=== PATIENT | female | born 1975 | race Caucasian/White ===

== ENCOUNTER → 2019-07-30 | Outpatient (REF) | payer OTHER ==
[2019-07-30 13:50] LABS: BASO # 0.1 10^3/uL (0.0-0.2); EOS # 0.2 10^3/uL (0.0-0.5); EOS % 3.2 % (0.0-3.0); HEMATOCRIT 42.8 % (36.0-47.0); HEMOGLOBIN 13.8 g/dl (12.0-15.5); LYMPH # 1.7 10^3/uL (1.5-5.0); LYMPH % 24.4 % (24.0-44.0); MEAN CORPUSCULAR HEMOGLOBIN 29.7 pg (27.0-33.0); MEAN CORPUSCULAR HGB CONC 32.2 g/dl (32.0-36.5); MONO # 0.5 10^3/uL (0.0-0.8); NEUTROPHILS # 4.5 10^3/uL (1.5-8.5); NEUTROPHILS % 64.1 % (36.0-66.0); PLATELET COUNT, AUTOMATED 303 10^3/uL (150-450); RED BLOOD COUNT 4.65 10^6/uL (4.00-5.40)
[2019-07-30 14:04] LABS: ALBUMIN 4.3 GM/DL (3.2-5.2); ALT/SGPT 26 U/L (12-78); BILIRUBIN,TOTAL 0.4 MG/DL (0.2-1.0); BLOOD UREA NITROGEN 16 MG/DL (7-18); CALCIUM LEVEL 9.3 MG/DL (8.5-10.1); CARBON DIOXIDE LEVEL 28 MEQ/L (21-32); CHLORIDE LEVEL 103 MEQ/L (98-107); CHOLESTEROL LEVEL 167 MG/DL (<200); CREATININE FOR GFR 0.84 MG/DL (0.55-1.30); FREE T4 1.31 NG/DL (0.76-1.46); GLOMERULAR FILTRATION RATE > 60.0 (>58); GLUCOSE, FASTING 92 MG/DL (70-100); HDL CHOLESTEROL 46 MG/DL (>40); LDL CHOLESTEROL 100 MG/DL (<100); NON-HDL-C 121 MG/DL; POTASSIUM SERUM 4.5 MEQ/L (3.5-5.1); SODIUM LEVEL 138 MEQ/L (136-145); THYROID STIMULATING HORMONE < 0.005 uIU/ML (0.358-3.740); TOTAL PROTEIN 7.4 GM/DL (6.4-8.2); TRIGLYCERIDES LEVEL 104 MG/DL (<150)
== END ==
LOC: M LABDRAW1 11:56
PROVIDERS: ATTEND Nurse Practitioner Family
DX: E03.9 Hypothyroidism, unspecified (principal); E78.00 Pure hypercholesterolemia, unspecified

== ENCOUNTER → 2019-08-05 | Outpatient (REF) | payer OTHER ==
[2019-08-05 18:42] LABS: COLLAGEN EPINEPHRINE 152 SECONDS (74-162)
[2019-08-05 18:51] LABS: INR 0.89; PROTHROMBIN TIME 11.7 SECONDS (11.8-14.0)
[2019-08-05 18:52] LABS: PARTIAL THROMBOPLASTIN TIME 30.5 SECONDS (25.0-38.4)
[2019-08-11 00:14] LABS: VITAMIN K1 1.73 ng/mL (0.13-1.88)
== END ==
LOC: M LABDRAW1 17:53
PROVIDERS: ATTEND Nurse Practitioner Family
DX: E03.9 Hypothyroidism, unspecified (principal); R79.89 Other specified abnormal findings of blood chemistry; R23.3 Spontaneous ecchymoses; Z83.2 Family history of diseases of the blood and blood-forming organs and certain disorders involving the immune mechanism; K06.8 Other specified disorders of gingiva and edentulous alveolar ridge; R23.8 Other skin changes

== ENCOUNTER → 2020-01-22 | Outpatient (REF) | payer OTHER ==
[2020-01-22 17:56] LABS: C REACTIVE PROTEIN QUANTITATIV < 0.30 MG/DL (0.00-0.30); RHEUMATOID FACTOR QUANT < 10.0 IU/ML (<15.0); URIC ACID 4.5 MG/DL (2.6-6.0)
[2020-01-22 17:57] LABS: HEMATOCRIT 40.6 % (36.0-47.0); MEAN CORPUSCULAR HEMOGLOBIN 28.7 pg (27.0-33.0); MEAN CORPUSCULAR VOLUME 89.6 fl (80.0-96.0); PLATELET COUNT, AUTOMATED 332 10^3/uL (150-450); RED BLOOD COUNT 4.53 10^6/uL (4.00-5.40); WHITE BLOOD COUNT 9.2 10^3/uL (4.0-10.0)
[2020-01-22 18:40] LABS: ERYTHROCYTE SEDIMENTATION RATE 5 mm/hr (0-20)
[2020-01-26 00:07] LABS: ANTINUCLEAR ANTIBODIES DIRECT Negative (Negative); Lyme Disease IgG/IgM Antibodie <0.91 ISR (0.00-0.90); Lyme Disease IgM Ab Quantitati <0.80 index (0.00-0.79)
== END ==
LOC: M LABDRAW1 15:33
PROVIDERS: ATTEND Orthopaedic Surgery
DX: M25.451 Effusion, right hip (principal)

== ENCOUNTER → 2020-03-14 | Outpatient (CLI) | payer OTHER ==
[2020-03-14 19:38] LABS: BASO # 0.1 10^3/uL (0.0-0.2); EOS # 0.1 10^3/uL (0.0-0.5); EOS % 1.5 % (0.0-3.0); HEMATOCRIT 41.2 % (36.0-47.0); HEMOGLOBIN 13.2 g/dl (12.0-15.5); LYMPH # 2.2 10^3/uL (1.5-5.0); LYMPH % 29.9 % (24.0-44.0); MEAN CORPUSCULAR HEMOGLOBIN 29.2 pg (27.0-33.0); MEAN CORPUSCULAR VOLUME 91.2 fl (80.0-96.0); MONO # 0.3 10^3/uL (0.0-0.8); MONO % 4.7 % (0.0-5.0); NEUTROPHILS # 4.5 10^3/uL (1.5-8.5); NEUTROPHILS % 62.6 % (36.0-66.0); PLATELET COUNT, AUTOMATED 324 10^3/uL (150-450); RED BLOOD COUNT 4.52 10^6/uL (4.00-5.40); WHITE BLOOD COUNT 7.3 10^3/uL (4.0-10.0)
[2020-03-14 19:46] LABS: ALBUMIN 4.2 GM/DL (3.2-5.2); ALT/SGPT 25 U/L (12-78); BILIRUBIN,TOTAL 0.4 MG/DL (0.2-1.0); BLOOD UREA NITROGEN 16 MG/DL (7-18); CARBON DIOXIDE LEVEL 28 MEQ/L (21-32); CHLORIDE LEVEL 102 MEQ/L (98-107); CHOLESTEROL LEVEL 165 MG/DL (<200); CREATININE FOR GFR 0.76 MG/DL (0.55-1.30); FREE T4 1.32 NG/DL (0.76-1.46); GLOMERULAR FILTRATION RATE > 60.0 (>58); GLUCOSE, FASTING 85 MG/DL (70-100); HDL CHOLESTEROL 50 MG/DL (>40); LDL CHOLESTEROL 93 MG/DL (<100); NON-HDL-C 115 MG/DL; POTASSIUM SERUM 4.4 MEQ/L (3.5-5.1); SODIUM LEVEL 136 MEQ/L (136-145); THYROID STIMULATING HORMONE 0.015 uIU/ML (0.358-3.740); TOTAL PROTEIN 7.5 GM/DL (6.4-8.2); TRIGLYCERIDES LEVEL 110 MG/DL (<150)
== END ==
LOC: M WUC 11:55
PROVIDERS: ATTEND Nurse Practitioner Family
DX: E55.9 Vitamin D deficiency, unspecified (principal); E03.9 Hypothyroidism, unspecified; R79.89 Other specified abnormal findings of blood chemistry; R23.3 Spontaneous ecchymoses; Z83.2 Family history of diseases of the blood and blood-forming organs and certain disorders involving the immune mechanism; K06.8 Other specified disorders of gingiva and edentulous alveolar ridge; R23.8 Other skin changes; E78.00 Pure hypercholesterolemia, unspecified

== ENCOUNTER → 2020-04-24 | Outpatient (REF) | payer OTHER | LOC: M LAB REF 16:19 | PROVIDERS: ATTEND Nurse Practitioner Family | DX: N39.0 Urinary tract infection, site not specified (principal) ==

== ENCOUNTER → 2020-07-12 | Outpatient (CLI) | payer OTHER ==
[~2020-07-12] MED LIST: ADDE30CA3 PO; ALLE60TA69 PO; CLAR10CA3 PO; FLUO40CA PO; LEVO175T19 PO; LEVO75TA4 PO; MOBI15TA PO; MS C15TA8 PO; PERC5TAB12 PO; TIZA2CAP PO; XARE10TA PO
[2020-07-12 12:08] LABS: HEMOGLOBIN 13.3 g/dl (12.0-15.5); MEAN CORPUSCULAR HEMOGLOBIN 28.7 pg (27.0-33.0); MEAN CORPUSCULAR HGB CONC 32.4 g/dl (32.0-36.5); MEAN CORPUSCULAR VOLUME 88.6 fl (80.0-96.0); PLATELET COUNT, AUTOMATED 317 10^3/uL (150-450); RED BLOOD COUNT 4.63 10^6/uL (4.00-5.40); WHITE BLOOD COUNT 7.4 10^3/uL (4.0-10.0)
[2020-07-12 12:26] LABS: INR 0.96
[2020-07-12 12:38] LABS: ALT/SGPT 22 U/L (12-78); BILIRUBIN,TOTAL 0.3 MG/DL (0.2-1.0); BLOOD UREA NITROGEN 16 MG/DL (7-18); CALCIUM LEVEL 9.4 MG/DL (8.5-10.1); CARBON DIOXIDE LEVEL 28 MEQ/L (21-32); CHLORIDE LEVEL 104 MEQ/L (98-107); CREATININE FOR GFR 0.72 MG/DL (0.55-1.30); GLOMERULAR FILTRATION RATE > 60.0 (>58); GLUCOSE, FASTING 94 MG/DL (70-100); POTASSIUM SERUM 4.8 MEQ/L (3.5-5.1); SODIUM LEVEL 138 MEQ/L (136-145); TOTAL PROTEIN 7.3 GM/DL (6.4-8.2)
[2020-07-12 12:57] LABS: ERYTHROCYTE SEDIMENTATION RATE 6 mm/hr (0-20)
--- NOTE | 2020-07-15 09:49 | REP ---
CHEST X-RAY: CLINICAL: Preoperative assessment. TECHNIQUE: PA and lateral FINDINGS: Mediastinum and cardiac silhouette are normal. Lung means are clear. No consolidation, effusion or pneumothorax. Skeletal structures are intact. IMPRESSION: Normal chest x-ray. MTDD
--- NOTE | 2020-08-02 12:04 | ECGEPIP ---
[facility] Test Date: 2020-07-12 Pat Name: NICHOLE FRANK Department: Room: - Gender: Female Medical Transcription Radiology: NELY : 1975 Requested By: Brennan Mora Order Number: [id number] Reading MD: Rene Gutierrez Measurements Intervals [place] Rate: 89 P: 63 [place]: 171 QRS: 49 QRSD: 97 T: 48 QT: 362 QTc: 440 Interpretive Statements SINUS RHYTHM NORMAL ECG SEE SCANNED DOWNTIME REPORT
== END ==
LOC: M LAB 11:14
PROVIDERS: ATTEND Orthopaedic Surgery
DX: M16.11 Unilateral primary osteoarthritis, right hip (principal)

== ENCOUNTER → 2020-07-15 | Outpatient (CLI) | payer OTHER | LOC: M LABSMTC 10:27 | PROVIDERS: ATTEND Anesthesiology | DX: Z01.818 Encounter for other preprocedural examination (principal); Z11.59 Encounter for screening for other viral diseases | CPT/HCPCS: C9803; U0003 ==

== ENCOUNTER 2020-07-20 06:02 | Inpatient (IN) | payer OTHER ==
[~2020-07-20] VITALS: Ht 175.3 cm; Wt 88.9 kg
[2020-07-20] VITALS (8 sets, daily range): BP systolic 88–136; BP diastolic 53–78
[~2020-07-20 06:02] MED LIST changes: -FLUO40CA PO; -LEVO175T19 PO; -MS C15TA8 PO; -PERC5TAB12 PO; -XARE10TA PO
[2020-07-20] MEDS ORDERED: ceFAZolin 2 GM/D5W 50 ML IV BAG (J0690 PER 500MG) As Ordered ONE (06:22)
[2020-07-20] MEDS ORDERED: ceFAZolin SOD 2 GM in IV 1 EA IV ONE (06:30)
[2020-07-20] MEDS ORDERED: LR 1,000 ML IV ONE (06:30)
[2020-07-20] MEDS ORDERED: MIDAZOLAM INJ 2MG/2ML VIAL (J2250 PER 1MG) As Ordered ONE ×2 (07:01→08:05)
[2020-07-20] MEDS ORDERED: propofoL 200 MG/20 ML VIAL As Ordered ONE ×3 (07:01→09:23)
[2020-07-20] MEDS ORDERED: LIDOCAINE 2% 100MG/5ML SDV (FOR ANES.) As Ordered ONE (07:01)
[2020-07-20] MEDS ORDERED: fentaNYL 100 MCG/2 ML INJECTION (J3010) As Ordered ONE (07:02)
[2020-07-20] MEDS ORDERED: TRANEXAMIC ACID 100 MG/ML 10ML VIAL As Ordered ONE (07:10)
[2020-07-20] MEDS ORDERED: BUPIVACAINE LIPOSOME/PF 1.3% 20ML VIAL (13.3MG/ML)(EXPAREL)(C9290 PER1MG) As Ordered ONE (07:10)
[2020-07-20] MEDS ORDERED: EPINEPHrine INJ 1 MG/ML 1ML AMP As Ordered ONE (07:10)
[2020-07-20] MEDS ORDERED: ceFAZolin 1GM VIAL (J0690 PER 500MG) As Ordered ONE (07:10)
[2020-07-20] MEDS ORDERED: ePHEDrine SULFATE 25 MG/5 ML(5MG/ML) SYRINGE As Ordered ONE (08:39)
[2020-07-20] MEDS ORDERED: PHENYLephrine HCL 500 MCG/5 ML (100MCG/ML) SYRINGE (J2370) As Ordered ONE (08:44)
[2020-07-20] MEDS ORDERED: ONDANSETRON 4MG/2ML VIAL As Ordered ONE (10:39)
[2020-07-20] MEDS ORDERED: fentaNYL 100 MCG/2 ML INJECTION (J3010) IV PRN (10:45)
[2020-07-20] MEDS ORDERED: ONDANSETRON 4MG/2ML VIAL IV PRN ×2 (10:45→11:00)
[2020-07-20] MEDS ORDERED: LR 1,000 ML IV SCH ×2 (10:45→11:00)
[2020-07-20] MEDS ORDERED: oxyCODONE 5MG TAB PO PRN (10:45)
--- NOTE | 2020-07-20 10:45 | HPEPDOC ---
General Date of Admission Jul 20, 2020 at 06:02 Date of Service: Jul 20, 2020 Primary Care Physician: A Attending Physician: CON REN MD Chief Complaint The patient is a 45-year-old female admitted with a reason for visit of Right Hip Osteoarthritis. Source: Patient Exam Limitations: No limitations History of Present Illness 45 yo W with history of hypothyroidism and ADHD who was admitted post total R hip arthroplasty with a history of R hip OA. Internal medicine was consulted for post op medical management. She is doing well, pain is well management, received ancef periop and has no complaints at this time. Home Medications Scheduled Dextroamphetamine/Amphetamine (Adderall Xr 30 mg Capsule) 30 Mg Cap.er.24h, 30 MG PO DAILY, (Reported) Levothyroxine Sodium (Levothyroxine Sodium) 75 Mcg Tablet, 75 MCG PO DAILY, (Reported) Loratadine (Claritin) 10 Mg Capsule, 10 MG PO DAILY, (Reported) Meloxicam (Mobic) 15 Mg Tablet, 15 MG PO DAILY, (Reported) Allergies Coded Allergies: No Known Allergies (Unverified , 07/08/20) Past Medical History Medical History Hypothyroidism ADHD Family History Significant Family History: No pertinent family hx Social History * Smoker: Denies Alcohol: Denies Drugs: denies Recent Travel/Sick Contacts: Denies: Recent travel, Recent sick contacts A-FIB/CHADSVASC A-FIB History Current/History of A-Fib/PAF?: No Current PO Anticoag Therapy: No Age/Risk Factor Scoring CHADSVASC: CHADSVASC Response (Comments) Value Age Risk Factor Age < 65 years old 0 Gender Risk Factor Female 1 Hx of CHF No 0 Hx of HTN No 0 Hx of Stroke/TIA/or VTE No 0 Hx of Diabetes No 0 Hx of Vascular Disease No 0 Total 1 Treatment Treatment ordered: NONE Reason Anticoagulant not given: Not indicated/[id number] Review of Systems Constitutional: Denies: Chills, Fever, Night Sweats Eyes: Denies: Pain, Vision change ENT: Denies: Head Aches, Ear Pain, Dysphagia Skin: Denies: Rash, Lesions, Breakdown Pulmonary: Denies: Dyspnea, Cough Cardiovascular: Denies: Chest Pain, Palpitations, Orthopnea, Paroxysmal Noc. Dyspnea, Lt Headedness Gastrointestinal: Denies: Nausea, Vomiting, Abdominal Pain, Diarrhea Genitourinary: Denies: Dysuria, Frequency, Incontinence, Retention Hematologic: Denies: Bruising, Bleeding Excessively Endocrine: Denies: Polydipsia, Polyphagia, Polyuria, Heat Intolerance, Cold Intolerance, Other Endocrine Sx Musculoskeletal: Reports: Joint Pain (R hip pain) Neurological: Denies: Weakness, Numbness, Change in speech, Confusion Psych: Reports: Mood Normal; Denies: Depression, Memory Issues Physical Examination General Exam: Positive: Alert (on voice. Sleepy), No Acute Distress Eye Exam: Positive: PERRLA, Conjunctiva & lids normal, EOMI; Negative: Sclera icteric ENT Exam: Positive: Atraumatic, Mucous membr. moist/pink, Pharynx Normal Neck Exam: Positive: Supple; Negative: JVD, thyromegaly Chest Exam: Positive: Clear to auscultation, Normal air movement, Other (on 2L NC currently, saturating 96%); Negative: Rales, Rhonchi, Wheezing Heart Exam: Positive: Rate Normal, Regular Rhythm, Normal S1, Normal S2; Negative: Murmurs, Rubs Abdomen Exam: Positive: Normal bowel sounds, Soft; Negative: Tenderness, Hepatospenomegaly Extremity Exam: Positive: Normal pulses; Negative: Clubbing, Cyanosis, Edema Skin Exam: Positive: Nl turgor and temperature, Other skin issue (R hip with dressing, no surrounding erythema or drainage); Negative: Breakdown Neuro Exam: Positive: Sensation Intact, Cranial Nerves 3-12 NL; Negative: Strength at 5/5 X4 ext (deferred R hip exam postop, otherwise LLE and bilateral UE strength was wnl 5/5 with FROM.) Psych Exam: Positive: Mental status NL, Mood NL, Oriented x 3 Vital Signs Vital Signs Date Time Temp Pulse Resp B/P (MAP) Pulse Ox O2 Delivery O2 Flow Rate FiO2 07/20/20 06:59 98.2 81 18 114/67 (83) 100 Room Air Assessment/Plan 45 yo W with longstanding R hip osteoarthritis who had a total R hip arthroplasty today with Dr. Mora. s/p Total R hip arthroplasty: -Plan per orthopedics for pain management, DVT ppx, instructions for PT/OT -had normal preop CXR and evaluation -had periop ancef -will check CBC, BMP tomorrow AM Hypothyroidism: -resume home Synthroid ADHD: -resume home Adderall DVT ppx: per orthopedics Dispo: per primary surgical team, otherwise medically stable. Plan / VTE VTE Prophylaxis Ordered?: Yes CON REN MD Jul 20, 2020 09:29
--- NOTE | 2020-07-20 10:54 | REPVR ---
PROCEDURE INFORMATION: Exam: XR Right Hip Exam date and time: 07/20/2020 10:39 AM Age: 45 years old Clinical indication: Other: Post op; Prior surgery; Surgery date: Post-operative (0-2 days); Additional info: Post op in pacu TECHNIQUE: Imaging protocol: XR Right hip Views: AP neutral and frogleg views views. COMPARISON: No relevant prior studies available. FINDINGS: Bones/joints: Right hip bipolar hemiarthroplasty. Borderline protrusio acetabuli. No acute bony abnormality identified. Soft tissues: Unremarkable. IMPRESSION: 1. Right hip bipolar hemiarthroplasty. 2. Borderline protrusio acetabuli. 3. No acute bony or hardware abnormality identified. Electronically signed by: Ag Howard On 07/20/2020 10:53:40 AM
[2020-07-20] MEDS ORDERED: ACETAMINOPHEN TAB 650MG DOSE (2X325MG) PO PRN (11:00)
[2020-07-20] MEDS ORDERED: MORPHINE 2 MG/ML 1ML VIAL (J2270) IV PRN (11:00)
[2020-07-20] MEDS ORDERED: MORPHINE 4 MG/ML 1ML VIAL/SYRINGE (J2270) IV PRN (11:00)
[2020-07-20] MEDS ORDERED: LACTATED RINGER'S 500 ML IV ONE (11:00)
[2020-07-20] MEDS ORDERED: FLUO40CA PO (12:10)
[2020-07-20] MEDS ORDERED: LEVO175T19 PO (12:10)
[2020-07-20] MEDS: LORATADINE 10 MG TAB PO SCH (13:42)
[2020-07-20] MEDS: AMPHETAMINE/DEXTROAMPHETAMINE 5 MG *ER* CAPSULE (ADDERALL XR) PO SCH (13:43)
[2020-07-20] MEDS: PERCOCET 5MG/325MG TAB PO PRN ×2 (14:54→21:57)
[2020-07-20] MEDS: ceFAZolin SOD 2 GM in IV 1 EA IV SCH ×2 (17:19→23:57)
[2020-07-20] MEDS ORDERED: KETOROLAC 30 MG/ML 1ML VIAL IV ONE (17:45)
[2020-07-20] MEDS: MORPHINE 15 MG SA TAB PO SCH (20:39)
[2020-07-20] MEDS ORDERED: FLUoxetine 20 MG CAP PO SCH (21:00)
[2020-07-21 02:00] VITALS: BP 127/71
[2020-07-21] MEDS: PERCOCET 5MG/325MG TAB PO PRN ×3 (02:32→12:26)
[2020-07-21] MEDS ORDERED: LEVOTHYROXINE 75MCG TABLET (0.075MG) PO SCH ×2 (06:00)
[2020-07-21] MEDS ORDERED: LEVOTHYROXINE 100MCG TABLET (0.1MG) PO SCH (06:00)
[2020-07-21] MEDS ORDERED: XARE10TA PO (06:17)
[2020-07-21] MEDS ORDERED: PERC5TAB12 PO (06:17)
[2020-07-21] MEDS ORDERED: MS C15TA8 PO (06:30)
[2020-07-21 06:39] LABS: HEMATOCRIT 32.4 % (36.0-47.0); HEMOGLOBIN 10.4 g/dl (12.0-15.5); MEAN CORPUSCULAR HEMOGLOBIN 28.8 pg (27.0-33.0); MEAN CORPUSCULAR HGB CONC 32.1 g/dl (32.0-36.5); MEAN CORPUSCULAR VOLUME 89.8 fl (80.0-96.0); PLATELET COUNT, AUTOMATED 275 10^3/uL (150-450); RED BLOOD COUNT 3.61 10^6/uL (4.00-5.40); WHITE BLOOD COUNT 9.2 10^3/uL (4.0-10.0)
[2020-07-21 07:00] VITALS: BP 125/71
[2020-07-21 07:10] LABS: BLOOD UREA NITROGEN 12 MG/DL (7-18); CALCIUM LEVEL 8.3 MG/DL (8.5-10.1); CARBON DIOXIDE LEVEL 27 MEQ/L (21-32); CHLORIDE LEVEL 104 MEQ/L (98-107); CREATININE FOR GFR 0.78 MG/DL (0.55-1.30); GLOMERULAR FILTRATION RATE > 60.0 (>58); GLUCOSE, FASTING 103 MG/DL (70-100); POTASSIUM SERUM 4.4 MEQ/L (3.5-5.1); SODIUM LEVEL 136 MEQ/L (136-145)
[2020-07-21] MEDS: LORATADINE 10 MG TAB PO SCH (08:01)
[2020-07-21] MEDS: AMPHETAMINE/DEXTROAMPHETAMINE 5 MG *ER* CAPSULE (ADDERALL XR) PO SCH ×2 (08:01→08:17)
[2020-07-21] MEDS: MORPHINE 15 MG SA TAB PO SCH (08:02)
[2020-07-21] MEDS ORDERED: MOM 30ML SUSPENSION UDC PO SCH (09:00)
[2020-07-21] MEDS ORDERED: MIRALAX *UNIT DOSE* 17GM PACKET PO SCH (09:00)
[2020-07-21] MEDS ORDERED: RIVAROXABAN 10 MG TAB (XARELTO) PO SCH (18:00)
--- NOTE | 2020-07-22 08:15 | IPN ---
DATE: 07/20/2020 SUBJECTIVE: Patient seen and examined. She wished to undergo with a right total hip arthroplasty. She understands the nature of this, the risks of bleeding, infection, damage to nerves and vessels, persistent pain, wear, loosening, dislocation, leg length inequality, blood clots, medical problems, among others. DENI
--- NOTE | 2020-08-08 10:03 | RO ---
DATE OF OPERATION: 07/20/2020 PREOPERATIVE DIAGNOSIS: Right hip osteoarthritis and Wayne-Danlos syndrome. POSTOPERATIVE DIAGNOSIS: Right hip osteoarthritis and Wayne-Danlos syndrome. PROCEDURE: Right total hip arthroplasty using a [place] size 7 high-offset with a +8.5 ceramic ball, 54 acetabular component with a ceramic liner. SURGEON: Dr. Brennan Mora BUSINESS BANKING MANAGER: RITIKA Solomon ANESTHESIA: Spinal. ESTIMATED BLOOD LOSS: 400. COMPLICATIONS: None. INDICATIONS: This is a 45-year-old woman who has had gradually worsening right hip pain, severe arthritis, and refractory to conservative management. She wished to go ahead with surgical treatment. She understood the nature of this, the risks of bleeding, infection, damage to nerves, vessels, persistent pain, wear, loosening, dislocation, leg-length inequality, blood clots, medical problems, , among other. She understood that this is often harder on younger people, and that with her Wayne-Danlos syndrome it could be more difficult to balance the tissues. The stonecutter assistant was instrumental in holding retractors and assisting in reducing and dislocating the hip and assisting with wound closure. DESCRIPTION OF PROCEDURE: Patient was taken to the operating room and placed in the left lateral decubitus position on the [place] positioner. All areas were padded appropriately. The right hip was prepped and draped in the usual sterile fashion. A time-out was performed, and a longitudinal incision was made over the lateral side of the hip. Sharp dissection was carried down through subcutaneous tissue. I controlled hemostasis with the cautery, incised the fascia wilfrido. The wound was relatively deep. I then gradually exposed the anterior part of the hip, removing about the anterior 40% of the abductors. Eventually we were able to dislocate the hip with some difficulty. I used the canal-initiating reamer, the canal-finding reamer, the lateralizing reamer, and then sequentially reamed up to a size 7, which is what was templated, and had good purchase. I made the neck cut, removed the ball, and this was about 3/4 of finger breadth up from the lesser trochanter. The acetabular side was then addressed. With the anterior and posterior retractors I removed soft tissue from around the acetabulum, controlled hemostasis with the cautery, and then sequentially reamed up to a size 53, which had good bleeding bone. I was able to medialize it some, because she had a pretty shallow acetabulum to begin with. She also had notable osteophytes anteriorly and posteriorly, which had to be removed, and this was quite difficult to get these out. I used an osteotome and a rongeur. I then placed a trial liner. Directed our attention back to the femur. I did gradually broach up. A size 6 was used, which was countersunk slightly, and I decided to plane down the neck cut to smooth it off just a millimeter or so. I then went up to the size 7 broach, and then we did some trialing off this with a standard and high-offset and various different neck lengths. I actually went up to a 12, and I think with her soft tissue laxity due to her underlying Wayne-Danlos syndrome, this made this fairly difficult to research and development chemist tissue tension and stability. I elected to go ahead with the high-offset size 8.5 neck combination, which had very good stability in extension, external rotation, and flexion, internal rotation. There was minimal shuck in full extension. I then removed the trial components, removed the acetabular liner, and put the actual ceramic liner in after irrigating and impacted it in place, made sure it was well seated. I irrigated multiple times prior to this. I irrigated the canal. I then impacted in a size 7 high-offset stem, made sure this was well seated, and there were no fractures noted. I then impacted on the +0.85 ceramic ball, 36, and reduced the hip. I again was pleased with the stability with flexion, internal rotation, extension, external rotation, and there was a small amount of shuck, maybe 2 mm in full extension. Soft tissue tension seemed to be appropriate. I the copiously irrigated, placed the TXA in the deep tissues and the Exparel in the deep tissues. The deep layer was closed, and I used several more stitches than normal just due to her soft tissue issues, and repaired the capsule tightly with #1 Vicryl suture and the abductor with #1 Vicryl suture, obtaining an excellent closure. I then put the hip through a range of motion, again very pleased with the stability. There was no subluxation or impingement noted. I then irrigated, closed the fascia with #1 Vicryl suture in a running Stratafix suture. We then used another running Stratafix suture in the subcutaneous tissue, because it was deep, and this was to close the space. The subcutaneous was closed with 2-0 Vicryl and the skin with enma. Sterile dressing was applied. She was taken to the recovery room in stable condition. There were no known complications. This was coded as an unusually difficult procedure due to the fact that this was a deep wound. She tended to bleed through her soft tissues fairly readily despite aggressive use with the cautery. Her acetabulum had significant osteophytes, which were difficult to remove. Her soft tissues were quite difficult to balance in terms of choosing appropriate components. The wound closure was more difficult as well. DENI
--- NOTE | 2020-09-12 11:12 | DS ---
DATE OF ADMISSION: 07/20/2020 DATE OF DISCHARGE: 07/21/2020 ATTENDING PHYSICIAN: Dr. Brennan Mora ADMITTING DIAGNOSIS: Right hip osteoarthritis. OTHER DIAGNOSES: 1. Hypotension. 2. Attention deficit hyperactivity disorder (ADHD). 3. Wayne-Danlos. DISCHARGE DIAGNOSIS: Right hip osteoarthritis, status post right total hip arthroplasty. HISTORY: Patient is a 45-year-old male who had progressively worsening right hip pain and stiffness. She failed to improve with conservative measures. She continued to have symptoms with weightbearing activities and activities of daily living. She consented for an elective right total hip arthroplasty with Dr. Mora for her continued symptoms. OPERATION PERFORMED: Right total hip arthroplasty. HOSPITAL COURSE: The patient underwent a right total hip arthroplasty under spinal anesthesia, which was uneventful. Her hospital course was without complication, and she was up with physical therapy per their protocol, weightbearing as tolerated on the right lower extremity. Patient was discharged on oral pain medications and will resume her preoperative medications and diet. She will use his thromboembolic deterrent stockings and take her anticoagulant postoperatively to prevent deep venous thrombosis. Patient will followup in our office in 12-14 days for a wound check and staple removal. She is encouraged to contact our office sooner if there is any increase in pain, redness, drainage, numbness or tingling in the extremity, fever greater than 101 degrees, or any other concerns. Please see medical records for additional details. DENI
== END 2020-07-21 13:00 | disposition home or self-care (01) | DRG 470 ==
LOC: M OR 06:02 → M MS5PR 11:45
PROVIDERS: ADMIT Orthopaedic Surgery; ATTEND Orthopaedic Surgery
PROC: 0SR90JZ Replacement of Right Hip Joint with Synthetic Substitute, Open Approach (ICD-10-PCS; principal; 2020-07-20 07:30)
DX: M16.11 Unilateral primary osteoarthritis, right hip (principal); Z79.899 Other long term (current) drug therapy; E03.9 Hypothyroidism, unspecified; F90.9 Attention-deficit hyperactivity disorder, unspecified type

== ENCOUNTER → 2021-02-20 | Outpatient (CLI) | payer OTHER ==
[~2021-02-20] MED LIST changes: +FLUO40CA PO; +LEVO175T19 PO; +MS C15TA8 PO; +PERC5TAB12 PO; +XARE10TA PO
[2021-02-20 12:42] LABS: BASO # 0.1 10^3/uL (0.0-0.2); BASO % 0.9 % (0.0-1.0); EOS # 0.1 10^3/uL (0.0-0.5); EOS % 1.3 % (0.0-3.0); HEMATOCRIT 44.7 % (36.0-47.0); HEMOGLOBIN 14.3 g/dl (12.0-15.5); LYMPH # 1.8 10^3/uL (1.5-5.0); LYMPH % 18.7 % (24.0-44.0); MEAN CORPUSCULAR HEMOGLOBIN 28.3 pg (27.0-33.0); MEAN CORPUSCULAR VOLUME 88.5 fl (80.0-96.0); MONO # 0.5 10^3/uL (0.0-0.8); MONO % 4.9 % (2.0-8.0); NEUTROPHILS # 7.1 10^3/uL (1.5-8.5); PLATELET COUNT, AUTOMATED 343 10^3/uL (150-450); RED BLOOD COUNT 5.05 10^6/uL (4.00-5.40); WHITE BLOOD COUNT 9.6 10^3/uL (4.0-10.0)
[2021-02-20 13:00] LABS: ALBUMIN 4.3 GM/DL (3.2-5.2); ALT/SGPT 31 U/L (12-78); BILIRUBIN,TOTAL 0.5 MG/DL (0.2-1.0); BLOOD UREA NITROGEN 11 MG/DL (7-18); CALCIUM LEVEL 9.8 MG/DL (8.5-10.1); CARBON DIOXIDE LEVEL 30 MEQ/L (21-32); CHLORIDE LEVEL 104 MEQ/L (98-107); CHOLESTEROL LEVEL 196 MG/DL (<200); CHOLESTEROL RISK RATIO 3.843 (<5); CREATININE FOR GFR 0.79 MG/DL (0.55-1.30); FREE T4 0.92 NG/DL (0.76-1.46); GLOMERULAR FILTRATION RATE > 60.0 (>58); GLUCOSE, FASTING 84 MG/DL (70-100); HDL CHOLESTEROL 51 MG/DL (>40); LDL CHOLESTEROL 111 MG/DL (<100); MAGNESIUM LEVEL 2.3 MG/DL (1.8-2.4); NON-HDL-C 145 MG/DL; POTASSIUM SERUM 4.7 MEQ/L (3.5-5.1); SODIUM LEVEL 137 MEQ/L (136-145); THYROID STIMULATING HORMONE 0.806 uIU/ML (0.358-3.740); TOTAL PROTEIN 7.5 GM/DL (6.4-8.2); TRIGLYCERIDES LEVEL 168 MG/DL (<150)
[2021-02-20 13:02] LABS: VITAMIN B12 LEVEL 654 PG/ML
== END ==
LOC: M WUC 10:38
PROVIDERS: ATTEND Nurse Practitioner Family
DX: E03.9 Hypothyroidism, unspecified (principal); E78.00 Pure hypercholesterolemia, unspecified; G43.019 Migraine without aura, intractable, without status migrainosus; R53.82 Chronic fatigue, unspecified; Z79.899 Other long term (current) drug therapy; E55.9 Vitamin D deficiency, unspecified

== ENCOUNTER → 2021-08-23 | Outpatient (CLI) | payer OTHER ==
[2021-08-23 10:52] LABS: AMORPHOUS SEDIMENT SMALL (NEGATIVE); APPEARANCE, URINE HAZY (CLEAR); BACTERIA, URINE AUTO 2+ (NEGATIVE); BILIRUBIN, URINE AUTO NEGATIVE (NEGATIVE); BLOOD, URINE BLOOD 2+ (NEGATIVE); COLOR, URINE STRAW (YELLOW); GLUCOSE, URINE (UA) AUTO NEGATIVE (NEGATIVE); KETONE, URINE AUTO NEGATIVE (NEGATIVE); LEUKOCYTE ESTERASE, URINE AUTO 3+ (NEGATIVE); MUCUS, URINE SMALL (NEGATIVE); NITRITE, URINE AUTO NEGATIVE (NEGATIVE); PROTEIN, URINE AUTO NEGATIVE (NEGATIVE); RBC, URINE AUTO 2 /HPF (0-3); SPECIFIC GRAVITY URINE AUTO 1.004 (1.002-1.035); SQUAMOUS EPITHELIAL CELL UR AU 1 /HPF (0-6); UROBILINOGEN, URINE AUTO 0.2 mg/dL (0.0-2.0); WBC, URINE AUTO 44 /HPF (0-3)
== END ==
LOC: M LAB 09:34
PROVIDERS: ATTEND Nurse Practitioner Family
DX: R30.0 Dysuria (principal)

== ENCOUNTER → 2024-04-01 | Outpatient (REF) | payer OTHER ==
[~2024-04-01] MED LIST changes: +CIPR-249 PO; +DEPA500T OR; +DOCU10CA PO; +HYDR-3715 PO; +IBUP-1022 PO; +IBUP600T42 PO; +LEXA1TAB OR; +MONT-5 PO; +NAPR500T81 PO; +NORC1TAB5 PO; +PROZ20CA11 PO; +ROBA500T OR; +SANI2SUP PR; +SYNT175T OR; +TOPI100T OR; +TOPI50TA OR; +VICO5TAB PO; +VOLT1GEL TOP; +XYZASOL2 PO; +[UNRECOGNIZED DRUG - OTHER] OU; +[UNRECOGNIZED DRUG - OTHER] PO; +clarinex PO; +lidocaine cream TOP; +vitamin d 3 PO
[2024-04-01 18:17] LABS: APPEARANCE, URINE CLEAR (CLEAR); BACTERIA, URINE AUTO NEGATIVE (NEGATIVE); BILIRUBIN, URINE AUTO NEGATIVE (NEGATIVE); BLOOD, URINE BLOOD 1+ (NEGATIVE); COLOR, URINE STRAW (YELLOW); GLUCOSE, URINE (UA) AUTO NEGATIVE (NEGATIVE); KETONE, URINE AUTO NEGATIVE (NEGATIVE); LEUKOCYTE ESTERASE, URINE AUTO NEGATIVE (NEGATIVE); NITRITE, URINE AUTO NEGATIVE (NEGATIVE); PROTEIN, URINE AUTO NEGATIVE (NEGATIVE); RBC, URINE AUTO 4 /HPF (0-3); SPECIFIC GRAVITY URINE AUTO 1.005 (1.002-1.035); SQUAMOUS EPITHELIAL CELL UR AU 1 /HPF (0-6); UROBILINOGEN, URINE AUTO 0.2 mg/dL (0.0-2.0); WBC, URINE AUTO 0 /HPF (0-3)
== END ==
LOC: M SMT 17:15
PROVIDERS: ATTEND Urology
DX: N36.9 Urethral disorder, unspecified (principal)

== ENCOUNTER → 2024-04-08 | Outpatient (CLI) | payer OTHER ==
[~2024-04-08] MED LIST changes: +FURO20TA2 PO; +LEVO137T2 PO; +SAXE1INJ SC; +UBRO50TA PO
[2024-04-08 09:55] LABS: HEMATOCRIT 42.4 % (36.0-47.0); MEAN CORPUSCULAR HEMOGLOBIN 29.4 pg (27.0-33.0); MEAN CORPUSCULAR VOLUME 89.1 fl (80.0-96.0); PLATELET COUNT, AUTOMATED 337 10^3/uL (150-450); RED BLOOD COUNT 4.76 10^6/uL (4.00-5.40); WHITE BLOOD COUNT 8.6 10^3/uL (4.0-10.0)
[2024-04-08 10:31] LABS: ALBUMIN 4.3 G/DL (3.2-5.2); ALKALINE PHOSPHATASE 85 U/L (46-116); ALT/SGPT 31 U/L (7.0-40); AST/SGOT 14 U/L (<34); BILIRUBIN,TOTAL 0.3 MG/DL (0.3-1.2); BLOOD UREA NITROGEN 15 MG/DL (9-23); CALCIUM LEVEL 9.9 MG/DL (8.5-10.1); CARBON DIOXIDE LEVEL 30 MMOL/L (20-31); CHLORIDE LEVEL 105 MMOL/L (98-107); CREATININE FOR GFR 0.77 MG/DL (0.55-1.30); GLOMERULAR FILTRATION RATE > 60.0 (>58); GLUCOSE, FASTING 84 MG/DL (60-100); POTASSIUM SERUM 5.2 MMOL/L (3.5-5.1); SODIUM LEVEL 138 MMOL/L (136-145); TOTAL PROTEIN 7.4 G/DL (5.7-8.2)
== END ==
LOC: M RAD 09:07
PROVIDERS: ATTEND Urology
DX: N36.9 Urethral disorder, unspecified (principal)

== ENCOUNTER 2024-04-13 11:47 | Day surgery (SDC) | payer OTHER ==
[~2024-04-13] VITALS: Ht 175.3 cm; Wt 93.6 kg
[2024-04-13] MEDS: LR 1,000 ML IV SCH (12:39)
[2024-04-13] MEDS: SCOPOLAMINE 1MG TRANSDERMAL PATCH TOP ONE (13:04)
[2024-04-13] MEDS ORDERED: propofoL 200 MG/20 ML VIAL As Ordered ONE (13:18)
[2024-04-13] MEDS ORDERED: CHLOROPROCAINE PRES. FREE 2% 20ML VIAL As Ordered ONE (13:18)
[2024-04-13] MEDS ORDERED: MIDAZOLAM INJ 2MG/2ML VIAL As Ordered ONE (13:52)
[2024-04-13] MEDS: ceFAZolin SOD 2 GM in IV 1 EA IV ONE (14:22)
[2024-04-13] MEDS ORDERED: ACETAMINOPHEN 1000MG 100ML IV BAG As Ordered ONE (14:44)
[2024-04-13] MEDS ORDERED: KETOROLAC 60MG 2ML VIAL As Ordered ONE (15:30)
[2024-04-13] MEDS ORDERED: ONDANSETRON 4MG 2ML VIAL As Ordered ONE (15:30)
[2024-04-13] MEDS ORDERED: MACR100C43 PO (15:54)
[2024-04-13] MEDS ORDERED: HYDR-3713 PO (15:54)
[2024-04-13] MEDS ORDERED: PYRI1TAB5 PO (15:54)
[2024-04-13] MEDS ORDERED: OXYB5TAB14 PO (15:54)
[2024-04-13] MEDS ORDERED: LR 1,000 ML IV SCH (16:00)
[2024-04-13] MEDS ORDERED: ONDANSETRON 4MG 2ML VIAL IV PRN (16:00)
[2024-04-13] MEDS ORDERED: fentaNYL 100 MCG/2 ML INJECTION IV PRN (16:00)
[2024-04-13] MEDS ORDERED: HYDROMORPHONE HCL 0.5 MG/ 0.5 ML SYRINGE IV PRN (16:00)
[2024-04-13] MEDS: oxyCODONE 5MG TAB PO PRN (16:53)
[2024-04-13 17:00] VITALS: BP 123/71; TEMP 98; O2SAT 98
== END 2024-04-13 18:04 | disposition home or self-care (01) ==
LOC: M SDC 11:47
PROVIDERS: ATTEND Urology
DX: N36.1 Urethral diverticulum (principal); E89.0 Postprocedural hypothyroidism; G43.909 Migraine, unspecified, not intractable, without status migrainosus; Z79.899 Other long term (current) drug therapy; Z79.890 Hormone replacement therapy; Z90.710 Acquired absence of both cervix and uterus; Z88.8 Allergy status to other drugs, medicaments and biological substances; Z88.6 Allergy status to analgesic agent; Z91.013 Allergy to seafood
CPT/HCPCS: 53230; 87070; 87075; 87076; 88302; 88305; J0131; J0690; J1100; J1885; J2250; J2401; J2405

== ENCOUNTER → 2025-08-06 | Outpatient (REF) | payer OTHER ==
[~2025-08-06] MED LIST changes: +HYDR-3713 PO; -IBUP-1022 PO; +MACR100C43 PO; +OXYB5TAB14 PO; -PROZ20CA11 PO; +PROZ20CA12 PO; +PYRI1TAB5 PO
== END ==
LOC: M LAB REF 18:14
PROVIDERS: ATTEND Physician Assistant
DX: R30.0 Dysuria (principal)